=== PATIENT | female | born 1970 | race Hispanic/Latino ===

== ENCOUNTER 2020-06-04 07:59 | Outpatient (CLI) | payer OTHER ==
[2020-06-04] MEDS ORDERED: Magnevist 469MG/ML 20 ML VIAL ONE (10:19)
--- NOTE | 2020-06-04 11:26 | MRI ---
MRI OF THE ABDOMEN WITH AND WITHOUT IV CONTRAST: INDICATION: A 50-year-old female with a history of an incidental lesion identified on outside echo evaluation of the abdomen. The patient has no history of prior trauma or surgery to the abdomen. The patient has no history of diabetes or renal disease. TECHNIQUE: Multiplanar, multisequence MR images were obtained of the abdomen utilizing liver mass protocol. 14 cc of Multihance utilized. COMPARISON: No comparisons are available. FINDINGS: On the T2 weighted images, there is no focal signal abnormality seen within the liver. On the in and out of phase T1 images, no signal dropout is grossly evident. No intrahepatic or extrahepatic bilia ry ductal dilatation is noted. The gallbladder is mildly distended. The common bile duct is normal in size. On the post contrast series, there is a small oval enhancing lesion seen predominantly on t he arterial phase images measuring 7.7 mm, within segment 5 of the right hepatic lobe on image 1040 o f series 10. This lesion progressively fades to the background signal intensity of the liver on the delayed phase images. No additional focal arterial enhancing lesion is evident. The pancreas, adren al glands, and kidneys appear within normal limits. No free fluid or enlarged lymph nodes are eviden t. No definite bone marrow signal abnormality is noted. IMPRESSION: Small arterially enhancing lesion within the right hepatic lobe measuring 7.7 mm may correspond to th e reported abnormality seen on an outside ultrasound exam. There was no submitted imaging from this evaluation or report available for review. This lesion is not visible on the T2 weighted image or T1 weighted images and may reflect a small focal nodular hyperplasia lesion. A small atypical capillar y hemangioma could also potentially cause this finding. There is no evidence of underlying chronic l iver disease to suggest presence of dysplastic nodule or possibly an early HCC lesion. As a conserva tive measure however, would recommend a followup MRI of the abdomen with and without IV contrast in 6 -12 months to document stability. POS: [facility]
== END 2020-06-04 08:00 | disposition home or self-care (01) ==
LOC: BICMRI 07:59
PROVIDERS: ATTEND Internal Medicine
DX: K76.9 Liver disease, unspecified (principal)
CPT/HCPCS: 74183; A9579